=== PATIENT | male | born 1985 | race Caucasian/White ===

== ENCOUNTER 2018-10-28 11:42 | Emergency (ER) | payer OTHER ==
[~2018-10-28] VITALS: Ht 180.3 cm; Wt 94.0 kg
[2018-10-28 11:51] VITALS: BP 128/67
--- NOTE | 2018-10-28 11:56 | NUR ---
Patient ambulated to bed 2 with family. RN evaluating patient at bedside.
--- NOTE | 2018-10-28 12:00 | NUR ---
33 Y MALE BIB FAMILY C/O RT EYE PAIN X2 WEEKS. PT WORKS IN CONSTRUCTION. PT STATES HE FELT DIRT IN HIS RT EYE AND IT WAS ITCHING AND PAIN HAS WORSENED. INTERMITENT SHARP PAIN IN RT EYE AT 6/10 THAT INCREASES WITH LIGHT. PT WEARING SUNGLASSES NOW. PT DENIES ANY BLURRY VISION OR DIFFICYULTY SEEING. PT HAS TREATED WITH TYLENOL WITH RELIEF. PT RIGHT EYE IS RED, NO SWELLING AROUND EYE. PT DENIES N/V/D OR FEVER. VSS AT THIS TIME. PT ALERT AND ORIENTED. BED IS DOWN, LOCKED, BED RAIL X 1, ERMD TO SEE PT. MEDHX:LASER EYE SURGERY 5 YEARS AGO RX:TYLENOL
--- NOTE | 2018-10-28 12:45 | NUR ---
DR TEMPLE AT BEDSIDE FOR PT EVALUATION
[2018-10-28] MEDS ORDERED: cefTRIAXone 1,000 MG in LIDOCAINE 1% ***ER ONLY *** 2.1 ML IM ONE (12:50)
[2018-10-28] MEDS ORDERED: cefTRIAXone 1,000 MG VIAL ONE (13:12)
[2018-10-28] MEDS ORDERED: LIDOCAINE MPF 1% 5mL VIAL ONE (13:13)
--- NOTE | 2018-10-28 13:25 | NUR ---
PAIN 4/10 AT THIS TIME
[2018-10-28 13:36] VITALS: BP 132/70
--- NOTE | 2018-10-28 13:36 | NUR ---
Patient discharged with v/s stable. Written and verbal after care instructions given and explained. Patient alert, oriented and verbalized understanding of instructions. Ambulatory with steady gait. All questions addressed prior to discharge. ID band removed. Patient advised to follow up with PMD. Rx of CLARITIN given. Patient educated on indication of medication including possible reaction and side effects. Opportunity to ask questions provided and answered.
== END 2018-10-28 13:36 | disposition home or self-care (01) ==
LOC: MED 11:42
DX: H10.9 Unspecified conjunctivitis (principal); B96.89 Other specified bacterial agents as the cause of diseases classified elsewhere; Z98.890 Other specified postprocedural states
CPT/HCPCS: 96372; 99283; J0696; J2001